=== PATIENT | male | born 1950 | race Two or more races ===

== ENCOUNTER 2023-05-31 11:26 | Inpatient (IN) | payer MEDICARE, OTHER ==
[~2023-05-31] VITALS: Ht 172.7 cm; Wt 68.5 kg
[2023-05-31] MEDS ORDERED: IV NS 0.9% 500 ML BAG IV ONE (12:00)
[2023-05-31 12:08] LABS: BASOPHILS # (AUTO) 0.1 K/uL (0.0-0.2); BASOPHILS % (AUTO) 0.7 % (0.0-2.0); EOSINOPHILS # (AUTO) 0.1 K/uL (0.0-0.7); EOSINOPHILS % (AUTO) 0.7 % (0.0-6.0); HEMATOCRIT 40 % (39-51); HEMOGLOBIN 14.3 g/dL (13.5-17.5); LYMPHOCYTES # (AUTO) 2.1 K/uL (0.8-4.8); LYMPHOCYTES % (AUTO) 22.9 % (20.0-44.0); MEAN CORPUSCULAR HEMOGLOBIN 32 PG (26.0-33.0); MEAN CORPUSCULAR HGB CONC 35 g/dl (31.0-36.0); MEAN CORPUSCULAR VOLUME 91 fL (80-96); MONOCYTES # (AUTO) 0.6 K/uL (0.1-1.30); MONOCYTES % (AUTO) 6.5 % (2.0-12.0); NEUTROPHILS # (AUTO) 6.2 K/uL (1.8-8.9); NEUTROPHILS % (AUTO) 69.2 % (43.0-81.0); PLATELET COUNT (AUTO) 491 K/uL (150-450); RED BLOOD CELL COUNT(AUTO) 4.41 MIL/uL (4.5-6.0); RED CELL DISTRIBUTION WIDTH 13.8 % (11.5-15.0)
[2023-05-31] MEDS ORDERED: SENN-261 PO (12:21)
[2023-05-31] MEDS ORDERED: HALO5SYR IM (12:21)
[2023-05-31] MEDS ORDERED: ACET-868 PO (12:21)
[2023-05-31] MEDS ORDERED: MELA3TAB41 PO (12:21)
[2023-05-31] MEDS ORDERED: HYDR50TA61 PO (12:21)
[2023-05-31] MEDS ORDERED: OMEG1CAP18 PO (12:21)
[2023-05-31] MEDS ORDERED: ONDA-97 PO (12:21)
[2023-05-31] MEDS ORDERED: BUSP15TA3 PO (12:21)
[2023-05-31] MEDS ORDERED: LACT-58 PO (12:22)
[2023-05-31] MEDS ORDERED: PETR113O TP (12:22)
[2023-05-31 12:26] LABS: ALANINE AMINOTRANSFERASE 26 U/L (12-78); ALBUMIN 3.9 g/dL (3.4-5.0); ALKALINE PHOSPHATASE 148 U/L (46-116); ASPARTATE AMINOTRANSFERASE 17 U/L (15-37); BILIRUBIN,DIRECT 0.1 mg/dL (0.0-0.2); BILIRUBIN,TOTAL 0.3 mg/dL (0.2-1.0); CALCIUM, SERUM 9.9 mg/dL (8.5-10.1); CARBON DIOXIDE 31 mmol/L (21-32); CHLORIDE 97 mmol/L (98-107); CREATININE 0.9 mg/dL (0.6-1.3); GLUCOSE 123 mg/dL (74-106); SODIUM SERUM 135 mmol/L (136-145); TOTAL PROTEIN, SERUM 9.6 g/dL (6.4-8.2); UREA NITROGEN, BLOOD 19 mg/dL (7-18)
[2023-05-31 12:33] LABS: THYROID STIMULATING HORMONE 5.227 uIU/mL (0.358-3.74)
[2023-05-31] MEDS ORDERED: ACETAMINOPHEN 325 MG TABLET PO PRN ×2 (14:00→14:30)
[2023-05-31 14:06] LABS: APPEARANCE,URINE TURBID (CLEAR); BILIRUBIN,URINE NEGATIVE (NEGATIVE); BLOOD, URINE NEGATIVE Ery/uL (NEGATIVE); COLOR,URINE DARK YELLOW (YELLOW); KETONES,URINE NEGATIVE (NEGATIVE); LEUKOCYTE ESTERASE ,URINE NEGATIVE (NEGATIVE); NITRITE, URINE NEGATIVE (NEGATIVE); PH,URINE 7.5 (5.0-8.0); PROTEIN,URINE NEGATIVE (NEGATIVE); UGLUCOSE NEGATIVE (NEGATIVE)
[2023-05-31] MEDS ORDERED: ONDANSETRON HCL/PF 4 MG/2 ML VIAL IVP PRN (14:30)
[2023-05-31] MEDS ORDERED: MAGNESIUM HYDROXIDE 30 ML UDC PO PRN (14:30)
[2023-05-31] MEDS ORDERED: MAG HYDROX/AL HYDROX/SIMETH 30 ML UDC PO PRN (14:30)
[2023-05-31] MEDS ORDERED: Z GUARD REMEDY 4 OZ OINT TP PRN (14:30)
[2023-05-31 14:50] VITALS: BP 136/58; TEMP 98.2; O2SAT 98
[2023-05-31] MEDS ORDERED: HALOPERIDOL LACTATE INJ 5 MG/ML VIAL IM PRN (15:00)
[2023-05-31] MEDS ORDERED: ONDANSETRON 4 MG TAB.RAPDIS PO PRN (15:00)
[2023-05-31 16:00] VITALS: BP 119/65; TEMP 98.1; O2SAT 100
[2023-05-31] MEDS: ENSURE ENLIVE 237 ML LIQUID (VANILLA) PO SCH (17:46)
[2023-05-31] MEDS: IV NS 0.9% 1,000 ML IV PRN (18:11)
[2023-05-31 20:00] VITALS: BP 134/74; TEMP 98.2; O2SAT 97
[2023-05-31] MEDS ORDERED: hydrOXYzine 10 MG TABLET PO PRN (20:00)
[2023-05-31] MEDS ORDERED: Medication Not On Formulary EA (Melatonin 3 MG) PO SCH (22:00)
[2023-05-31] MEDS: SENNOSIDES 8.6 MG TABLET PO SCH ×2 (22:02→22:10)
[2023-05-31] MEDS: busPIRone 5 MG TABLET PO SCH (22:02)
[2023-06-01 07:00] VITALS: BP 154/71; TEMP 97.7; O2SAT 98
[2023-06-01 07:11] LABS: BASOPHILS % (AUTO) 0.4 % (0.0-2.0); EOSINOPHILS # (AUTO) 0.1 K/uL (0.0-0.7); EOSINOPHILS % (AUTO) 1.8 % (0.0-6.0); HEMATOCRIT 35 % (39-51); HEMOGLOBIN 12.1 g/dL (13.5-17.5); LYMPHOCYTES # (AUTO) 2.3 K/uL (0.8-4.8); LYMPHOCYTES % (AUTO) 30.7 % (20.0-44.0); MEAN CORPUSCULAR HEMOGLOBIN 32 PG (26.0-33.0); MEAN CORPUSCULAR HGB CONC 35 g/dl (31.0-36.0); MEAN CORPUSCULAR VOLUME 92 fL (80-96); MONOCYTES # (AUTO) 0.5 K/uL (0.1-1.30); MONOCYTES % (AUTO) 6.2 % (2.0-12.0); NEUTROPHILS # (AUTO) 4.6 K/uL (1.8-8.9); NEUTROPHILS % (AUTO) 60.9 % (43.0-81.0); PLATELET COUNT (AUTO) 470 K/uL (150-450); RED BLOOD CELL COUNT(AUTO) 3.78 MIL/uL (4.5-6.0); RED CELL DISTRIBUTION WIDTH 13.6 % (11.5-15.0); WHITE BLOOD COUNT (AUTO) 7.5 K/uL (4.3-11.0)
[2023-06-01 07:49] LABS: CALCIUM, SERUM 8.9 mg/dL (8.5-10.1); CARBON DIOXIDE 25 mmol/L (21-32); CHLORIDE 98 mmol/L (98-107); CREATININE 0.7 mg/dL (0.6-1.3); GLUCOSE 94 mg/dL (74-106); MAGNESIUM 1.9 mg/dL (1.8-2.4); PHOSPHORUS 3.2 mg/dL (2.5-4.9); POTASSIUM 4.2 mmol/L (3.5-5.1); SODIUM SERUM 133 mmol/L (136-145); UREA NITROGEN, BLOOD 15 mg/dL (7-18)
[2023-06-01] MEDS: IV NS 0.9% 1,000 ML IV PRN (07:55)
[2023-06-01] MEDS: ENSURE ENLIVE 237 ML LIQUID (VANILLA) PO SCH ×2 (08:35→17:18)
[2023-06-01 20:00] VITALS: BP 157/69; TEMP 98.4; O2SAT 99
[2023-06-01] MEDS: SENNOSIDES 8.6 MG TABLET PO SCH (22:00)
[2023-06-01] MEDS: busPIRone 5 MG TABLET PO SCH (22:35)
[2023-06-02] MEDS: IV NS 0.9% 1,000 ML IV PRN ×2 (02:43→17:41)
[2023-06-02 04:00] VITALS: BP 131/67; TEMP 98.5; O2SAT 99
[2023-06-02] MEDS: ENSURE ENLIVE 237 ML LIQUID (VANILLA) PO SCH ×2 (07:27→17:07)
[2023-06-02 08:00] VITALS: BP 120/63; TEMP 98.6; O2SAT 99
[2023-06-02 16:00] VITALS: BP 116/64; TEMP 98.2; O2SAT 96
[2023-06-02 20:33] VITALS: BP 115/66; TEMP 98; O2SAT 97
[2023-06-02] MEDS: MUPIROCIN OINT 2% 22 GM TUBE NS SCH (20:51)
[2023-06-02] MEDS: busPIRone 5 MG TABLET PO SCH (21:24)
[2023-06-03] MEDS: IV NS 0.9% 1,000 ML IV PRN (05:32)
[2023-06-03 08:00] VITALS: BP 135/68; TEMP 98.8; O2SAT 97
[2023-06-03] MEDS ORDERED: hydrOXYzine PAMOATE 25 MG CAPSULE PO PRN (08:00)
[2023-06-03] MEDS: ENSURE ENLIVE 237 ML LIQUID (VANILLA) PO SCH (08:03)
[2023-06-03] MEDS: MUPIROCIN OINT 2% 22 GM TUBE NS SCH (08:09)
== END 2023-06-03 14:15 | DRG 640 ==
LOC: ER 11:47 → MED 14:17
PROVIDERS: ADMIT Internal Medicine; ATTEND Internal Medicine
DX: R62.7 Adult failure to thrive (principal); E43 Unspecified severe protein-calorie malnutrition; G93.41 Metabolic encephalopathy; E87.1 Hypo-osmolality and hyponatremia; F03.94 Unspecified dementia, unspecified severity, with anxiety; F03.92 Unspecified dementia, unspecified severity, with psychotic disturbance; Z20.822 Contact with and (suspected) exposure to COVID-19; F41.1 Generalized anxiety disorder; M19.90 Unspecified osteoarthritis, unspecified site; Z79.899 Other long term (current) drug therapy; Z73.6 Limitation of activities due to disability; F29 Unspecified psychosis not due to a substance or known physiological condition; E88.09 Other disorders of plasma-protein metabolism, not elsewhere classified; E86.1 Hypovolemia; R79.89 Other specified abnormal findings of blood chemistry; R26.9 Unspecified abnormalities of gait and mobility; G47.00 Insomnia, unspecified
CPT/HCPCS: 36415; 71045-TC; 80048-TC; 80076-TC; 82962-TC; 83735-TC; 83880; 84100-TC; 84443-TC; 84484-TC; 85025-TC; 87081-TC; A4223; G0378; J7030; J7040; Q0177

== ENCOUNTER 2024-07-25 00:06 | Inpatient (IN) | payer MEDICARE, OTHER ==
[~2024-07-25] VITALS: Ht 165.1 cm; Wt 64.9 kg
[~2024-07-25 00:06] MED LIST: ACET-868 PO; BUSP15TA3 PO; HALO5SYR IM; HYDR50TA61 PO; LACT-58 PO; MELA3TAB41 PO; OMEG1CAP18 PO; ONDA-97 PO; PETR113O TP; SENN-261 PO
[2024-07-25 00:38] LABS: BASOPHILS # (AUTO) 0.1 K/uL (0.0-0.2); BASOPHILS % (AUTO) 0.6 % (0.0-2.0); EOSINOPHILS # (AUTO) 0.1 K/uL (0.0-0.7); EOSINOPHILS % (AUTO) 0.7 % (0.0-6.0); HEMATOCRIT 42 % (39-51); HEMOGLOBIN 14.1 g/dL (13.5-17.5); LYMPHOCYTES # (AUTO) 1.6 K/uL (0.8-4.8); LYMPHOCYTES % (AUTO) 15.8 % (20.0-44.0); MEAN CORPUSCULAR HEMOGLOBIN 33 PG (26.0-33.0); MEAN CORPUSCULAR HGB CONC 34 g/dl (31.0-36.0); MEAN CORPUSCULAR VOLUME 96 fL (80-96); MONOCYTES # (AUTO) 0.6 K/uL (0.1-1.30); MONOCYTES % (AUTO) 5.9 % (2.0-12.0); NEUTROPHILS # (AUTO) 7.7 K/uL (1.8-8.9); PLATELET COUNT (AUTO) 195 K/uL (150-450); RED BLOOD CELL COUNT(AUTO) 4.34 MIL/uL (4.5-6.0); RED CELL DISTRIBUTION WIDTH 15.4 % (11.5-15.0)
[2024-07-25 00:45] LABS: CALCIUM, SERUM 9.5 mg/dL (8.5-10.1); CARBON DIOXIDE 30 mmol/L (21-32); CHLORIDE 101 mmol/L (98-107); GLUCOSE 156 mg/dL (74-106); POTASSIUM 3.9 mmol/L (3.5-5.1); SODIUM SERUM 138 mmol/L (136-145); UREA NITROGEN, BLOOD 34 mg/dL (7-18)
[2024-07-25 00:51] LABS: ALANINE AMINOTRANSFERASE 21 U/L (12-78); ALKALINE PHOSPHATASE 163 U/L (46-116); ASPARTATE AMINOTRANSFERASE 18 U/L (15-37); BILIRUBIN,DIRECT 0.1 mg/dL (0.0-0.2); BILIRUBIN,TOTAL 0.5 mg/dL (0.2-1.0)
[2024-07-25 00:54] LABS: ACETAMINOPHEN <10 ug/ml (10-30); ALCOHOL, BLOOD < 3 mg/dL (0-10); SALICYLATE 1.7 mg/dL (2.8-20.0)
[2024-07-25 01:52] LABS: APPEARANCE,URINE CLEAR (CLEAR); BILIRUBIN,URINE NEGATIVE (NEGATIVE); BLOOD, URINE NEGATIVE Ery/uL (NEGATIVE); COLOR,URINE YELLOW (YELLOW); KETONES,URINE NEGATIVE (NEGATIVE); LEUKOCYTE ESTERASE ,URINE NEGATIVE (NEGATIVE); NITRITE, URINE NEGATIVE (NEGATIVE); PROTEIN,URINE NEGATIVE (NEGATIVE); UGLUCOSE NEGATIVE (NEGATIVE); UROBILINOGEN,URINE 0.2 EU/dL (0.2)
[2024-07-25 02:14] LABS: AMPHETAMINE, URINE NEGATIVE (NEGATIVE); BARBITURATE, URINE NEGATIVE (NEGATIVE); BENZODIAZEPINE, URINE NEGATIVE (NEGATIVE); CANNABINOID, URINE NEGATIVE (NEGATIVE); COCCAINE, URINE NEGATIVE (NEGATIVE); OPIATE, URINE NEGATIVE (NEGATIVE); PHENCYCLIDINE SCREEN,URINE NEGATIVE (NEGATIVE)
[2024-07-25] MEDS ORDERED: OLANZAPINE 10 MG VIAL IM ONE (08:40)
[2024-07-25] MEDS: OLANZAPINE 10 MG VIAL IM ONE (08:46)
[2024-07-25] MEDS ORDERED: MIRT-90 PO (09:05)
[2024-07-25] MEDS ORDERED: ACET-2030 PO (09:05)
[2024-07-25] MEDS ORDERED: GABA300C PO (09:05)
[2024-07-25] MEDS ORDERED: MULT-447 PO (09:05)
[2024-07-25] MEDS: MULTIVIT W/MINERALS 1 TAB TABLET PO SCH (11:00)
[2024-07-25 20:00] VITALS: BP 134/71; TEMP 98.4; O2SAT 99
[2024-07-25] MEDS ORDERED: TEMAZEPAM 7.5 MG CAPSULE PO PRN ×2 (20:30)
[2024-07-25] MEDS ORDERED: MAG HYDROX/AL HYDROX/SIMETH 30 ML UDC PO PRN (20:30)
[2024-07-25] MEDS ORDERED: LORAZEPAM 0.5 MG TABLET PO PRN ×2 (20:30)
[2024-07-25] MEDS ORDERED: Z GUARD REMEDY 4 OZ OINT TP PRN (20:30)
[2024-07-25] MEDS ORDERED: MAGNESIUM HYDROXIDE 30 ML UDC PO PRN (20:30)
[2024-07-25] MEDS: BLOOD SUGAR DIAGNOSTIC 1 EACH STRIP IN ONE (20:38)
[2024-07-25 21:00] VITALS: BP 125/72; TEMP 98; O2SAT 98
[2024-07-26 08:00] VITALS: BP 111/68; TEMP 98; O2SAT 98
[2024-07-26] MEDS: GABAPENTIN 300 MG CAPSULE PO SCH (12:01)
[2024-07-26 16:00] VITALS: BP 116/71; TEMP 97.7; O2SAT 98
[2024-07-26 20:22] VITALS: BP 117/60; TEMP 97.7; O2SAT 97
[2024-07-26] MEDS: MIRTAZAPINE 15 MG TABLET PO SCH (21:34)
[2024-07-27 08:00] VITALS: BP 116/78; TEMP 97.8; O2SAT 96
[2024-07-27 16:08] VITALS: BP 112/61; TEMP 97.8; O2SAT 98
[2024-07-27 23:01] VITALS: BP 112/63; TEMP 97.8; O2SAT 98
[2024-07-28 08:00] VITALS: BP 104/56; TEMP 97.9; O2SAT 97
[2024-07-28 15:12] VITALS: BP 161/73; TEMP 97.6; O2SAT 97
[2024-07-28 15:18] VITALS: BP 105/73; TEMP 97.8; O2SAT 96
[2024-07-28 20:08] VITALS: BP 120/74; TEMP 98.9; O2SAT 97
[2024-07-29 08:00] VITALS: BP 121/72; TEMP 97.4; O2SAT 99
[2024-07-29 16:00] VITALS: BP 140/83; TEMP 97.8; O2SAT 98
[2024-07-29 19:53] VITALS: BP 134/81; TEMP 97.8; O2SAT 98
[2024-07-30 08:00] VITALS: BP 123/75; TEMP 97.7; O2SAT 100
[2024-07-30 16:00] VITALS: BP 111/56; TEMP 97.9; O2SAT 100
[2024-07-30 19:55] VITALS: BP 111/97; TEMP 98.2; O2SAT 100
[2024-07-31 08:00] VITALS: BP_SYST 109; BP_SYST 122; BP_DIAS 84; BP_DIAS 86; TEMP 97.9; TEMP 98; O2SAT 94; O2SAT 98
[2024-07-31] MEDS: ENSURE ENLIVE CHOC 237 ML CAN PO SCH (12:00)
[2024-07-31 16:00] VITALS: BP 110/69; TEMP 98; O2SAT 99
[2024-07-31 19:59] VITALS: BP 109/64; TEMP 97.9; O2SAT 99
[2024-08-01] MEDS: ACETAMINOPHEN 325 MG TABLET PO PRN (06:30)
[2024-08-01 08:00] VITALS: BP 141/76; TEMP 97.8; O2SAT 96
[2024-08-01 16:00] VITALS: BP 125/63; TEMP 98; O2SAT 96
[2024-08-01 20:00] VITALS: BP 127/52; TEMP 98.1
[2024-08-02 08:00] VITALS: BP 105/90; TEMP 97.8; O2SAT 95
[2024-08-02 16:00] VITALS: BP 115/81; TEMP 97.8; O2SAT 98
[2024-08-02 20:07] VITALS: BP 111/76; TEMP 97.9; O2SAT 98
[2024-08-03 08:00] VITALS: BP 104/74; TEMP 97.9; O2SAT 98
[2024-08-03 15:38] VITALS: BP 121/66; TEMP 97.8; O2SAT 98
[2024-08-03 20:02] VITALS: BP 113/54; TEMP 97.8; O2SAT 98
[2024-08-04 08:00] VITALS: BP 107/65; TEMP 97.9; O2SAT 100
[2024-08-04 16:00] VITALS: BP 117/60; TEMP 98.1; O2SAT 97
[2024-08-04 19:57] VITALS: BP 111/43; TEMP 97.5; O2SAT 99
[2024-08-05 08:00] VITALS: BP 134/68; TEMP 97.7; O2SAT 98
[2024-08-05 15:56] VITALS: BP 108/58; TEMP 97.8; O2SAT 97
[2024-08-05 19:59] VITALS: BP 118/52; TEMP 97.8; O2SAT 96
[2024-08-06 08:00] VITALS: BP 119/77; TEMP 98.2; O2SAT 97
== END 2024-08-06 13:45 | DRG 885 ==
LOC: ER 00:18 → MS IN 07:55 → GPS IN 11:33 → GPS 18:14
PROVIDERS: ADMIT Nurse Practitioner Psychiatric/Mental Health; ATTEND Internal Medicine
DX: F39 Unspecified mood [affective] disorder (principal); F03.93 Unspecified dementia, unspecified severity, with mood disturbance; F29 Unspecified psychosis not due to a substance or known physiological condition; M19.90 Unspecified osteoarthritis, unspecified site; Z73.6 Limitation of activities due to disability; Z79.899 Other long term (current) drug therapy; Z91.199 Patient's noncompliance with other medical treatment and regimen due to unspecified reason; F32.A Depression, unspecified; E78.5 Hyperlipidemia, unspecified; R41.3 Other amnesia
CPT/HCPCS: 36415; 70450-TC; 80048-TC; 80076-TC; 85025-TC; 87081-TC; 97110-TC; 97112-TC; 97116-TC; 97530-TC; G0480; J3490